=== PATIENT | female | born 1945 | race Caucasian/White ===

== ENCOUNTER → 2017-04-30 | Outpatient (CLI) | payer MEDICARE ==
[~2017-04-30] MED LIST: LISI-167 PO; VERA120C2 PO
== END | disposition home or self-care (01) ==
LOC: CFH 14:34
PROVIDERS: ATTEND Family Medicine
DX: Z12.31 Encounter for screening mammogram for malignant neoplasm of breast (principal)
CPT/HCPCS: 77063; 77067

== ENCOUNTER → 2017-11-26 | Outpatient (CLI) | payer MEDICARE | END | disposition home or self-care (01) | LOC: CFH 08:59 | PROVIDERS: ATTEND Internal Medicine Cardiovascular Disease | DX: I34.0 Nonrheumatic mitral (valve) insufficiency (principal); I10 Essential (primary) hypertension; E78.5 Hyperlipidemia, unspecified | CPT/HCPCS: 93306 ==

== ENCOUNTER → 2018-05-15 | Outpatient (CLI) | payer MEDICARE | END | disposition home or self-care (01) | LOC: CFH 14:46 | PROVIDERS: ATTEND Family Medicine | DX: Z12.31 Encounter for screening mammogram for malignant neoplasm of breast (principal); M85.88 Other specified disorders of bone density and structure, other site; M81.0 Age-related osteoporosis without current pathological fracture; Z78.0 Asymptomatic menopausal state | CPT/HCPCS: 77063; 77080; 77067 ==

== ENCOUNTER 2018-07-16 10:41 | Outpatient (CLI) | payer MEDICARE | END 2018-07-16 23:59 | disposition home or self-care (01) | LOC: CFH 10:41 | PROVIDERS: ATTEND Family Medicine | DX: R92.2 Inconclusive mammogram (principal); Z80.3 Family history of malignant neoplasm of breast | CPT/HCPCS: 76377; 76641; 76642 ==

== ENCOUNTER → 2019-05-20 | Outpatient (CLI) | payer MEDICARE | END | disposition home or self-care (01) | LOC: CFH 13:51 | PROVIDERS: ATTEND Family Medicine | DX: Z12.31 Encounter for screening mammogram for malignant neoplasm of breast (principal); N64.89 Other specified disorders of breast | CPT/HCPCS: 77063; 77067 ==

== ENCOUNTER 2020-02-14 21:55 | Emergency (ER) | payer MEDICARE ==
[~2020-02-14] VITALS: Ht 172.7 cm; Wt 60.0 kg
[2020-02-14] MEDS ORDERED: PROMETHAZINE 25 MG/ML, 1ML ONE (22:06)
--- NOTE | 2020-02-14 22:10 | NUR ---
REPORT RECEIVED FROM CAMPBELL SOSA WHO TOOK REPORT FROM [facility] AND COMPLETED INTAKE
--- NOTE | 2020-02-14 22:12 | NUR ---
PATIENT GIVEN 12.5MG PHENERGAN FOR NAUSEA PER VERBAL ORDERS FROM GAGAN NANCE.
[2020-02-14] MEDS ORDERED: PROMETHAZINE 25 MG/ML, 1ML IM ONE ×2 (22:30)
--- NOTE | 2020-02-14 22:40 | NUR ---
PATIENT IN IMAGING
[2020-02-14 22:48] LABS: BASOPHILS % (AUTO) 1 % (0-1); EOSINOPHILS % (AUTO) 1 % (1-7); LYMPHOCYTES % (AUTO) 18 % (22-44); MEAN CORPUSCULAR HEMOGLOBIN 30.4 pg (27.0-34.8); MEAN CORPUSCULAR HGB CONC 32.9 g/dL (32.4-35.8); MEAN PLATELET VOLUME 7.2 fL (7.4-10.4); MONOCYTES % (AUTO) 6 % (2-9); NEUTROPHILS % (AUTO) 74 % (42-75); PLATELET COUNT 258 x10^3/uL (130-400); RED BLOOD COUNT 4.64 x10^6/uL (3.82-5.3); RED CELL DISTRIBUTION WIDTH 13.9 % (9.6-15.2)
[2020-02-14 22:53] LABS: ANION GAP 6 mmol/L (5-15); CALCIUM 8.8 mg/dL (8.5-10.1); CHLORIDE 111 mmol/L (98-107)
[2020-02-14 22:55] LABS: MD NO
[2020-02-14 22:56] LABS: ALANINE AMINOTRANSFERASE 28 U/L (12-78); ALKALINE PHOSPHATASE 67 U/L (45-117); BILIRUBIN,TOTAL 0.3 mg/dL (0.2-1.0); CREATININE 0.81 mg/dL (0.55-1.02); TOTAL PROTEIN 7.4 g/dL (6.4-8.2)
--- NOTE | 2020-02-14 23:37 | NUR ---
PATIENT SLEEPING, MONITORING IN PLACE, VSS, NADN. CALL LIGHT IN REACH
--- NOTE | 2020-02-14 23:52 | NUR ---
POSTDOCTORAL SCIENTIST CALLING STAT RAD TO GET CT READ
--- NOTE | 2020-02-15 00:47 | NUR ---
PATIENT AMBULATORY TO RESTROOM WITH STANDBY ASSISTANCE
[2020-02-15] MEDS ORDERED: IBUPROFEN 600 MG TABLET ONE (01:36)
--- NOTE | 2020-02-15 01:38 | NUR ---
PATIENT MEDICATED PER EMAR FOR NECK PAIN
--- NOTE | 2020-02-15 01:40 | NUR ---
IS ON HIS WAY TO PICK PATIENT UP FOR SAFE DISCHARGE TRANSPORTATION
[2020-02-15 01:49] VITALS: BP 109/69
[2020-02-15] MEDS ORDERED: IBUPROFEN 600 MG TABLET PO ONE (02:00)
--- NOTE | 2020-02-15 02:29 | NUR ---
Patient and given discharge instructions and they have confirmed that they understand the instructions. Patient ambulatory with steady gait in room, wheeled to discharge and car outside for safety.
== END 2020-02-15 02:31 | disposition home or self-care (01) ==
LOC: ED 23:08
DX: S06.0X0A Concussion without loss of consciousness, initial encounter (principal); S01.511A Laceration without foreign body of lip, initial encounter; S00.531A Contusion of lip, initial encounter; M54.2 Cervicalgia; R94.31 Abnormal electrocardiogram [ECG] [EKG]; I10 Essential (primary) hypertension; F10.120 Alcohol abuse with intoxication, uncomplicated; W01.0XXA Fall on same level from slipping, tripping and stumbling without subsequent striking against object, initial encounter; Y93.89 Activity, other specified; Y92.009 Unspecified place in unspecified non-institutional (private) residence as the place of occurrence of the external cause; Y99.8 Other external cause status
CPT/HCPCS: 36415; 70450; 72125; 80053; 80307; 85025; 93005; 96372; 99285; J2550

== ENCOUNTER 2020-02-16 23:03 | Emergency (ER) | payer MEDICARE ==
[~2020-02-16] VITALS: Ht 170.2 cm; Wt 60.0 kg
--- NOTE | 2020-02-16 23:30 | NUR ---
PT REFUSED XRAY, LABS AND EKG. ANKUR FARAH, AWARE
[2020-02-16] MEDS ORDERED: ZIPRASIDONE 20 MG INJ IM ONE (23:52)
[2020-02-17] MEDS ORDERED: ZIPRASIDONE 20 MG INJ IM ONE
--- NOTE | 2020-02-17 00:09 | NUR ---
PT DEBBIE REMSA FROM HOME FOR PARANOIA, CALLED EMS. REPORTS PT HAS BEEN DRINKING AND DRIVING AND HAS BEEN HAVING ANXIETY. PT IS A&O X4. PT SEEN BY GAGAN PASCUAL AND DR SAEED. PT TRIED ELOPING. PT WOULD NOT REUTRN TO ROOM ON OWN. SECURITY CALLED. PT WAS KICKING THIS RN AND SECURITY. PT PLACED IN RESTRAINTS PER DR SAEED AND GIVEN GEODON. PT IS ON A LEGAL HOLD.
--- NOTE | 2020-02-17 00:12 | NUR ---
PT WAS KICKING SECURITY DURING RESTRAINT PLACEMENT. PT WAS GRABING THIS RN'S HANDS AND SQUEEZING THEM. PT KICKED THIS RN IN THE STOMACH. PT REFUSED TO COOPERATE. A SKIN TEAR WAS NOTED TO RIGHT ANKLE WHILE PLACING RESTRAINTS. RESTRAINTS NOT PLACED TO RIGHT ANKLE FOR WOUND INTEGRITY. DR SAEED AND GAGAN PASCUAL AWARE OF SKIN TEAR.
[2020-02-17 00:22] LABS: BASOPHILS % (AUTO) 1 % (0-1); EOSINOPHILS % (AUTO) 1 % (1-7); LYMPHOCYTES % (AUTO) 22 % (22-44); MEAN CORPUSCULAR HEMOGLOBIN 30.4 pg (27.0-34.8); MEAN CORPUSCULAR HGB CONC 33.1 g/dL (32.4-35.8); MEAN PLATELET VOLUME 7.3 fL (7.4-10.4); MONOCYTES % (AUTO) 10 % (2-9); NEUTROPHILS % (AUTO) 66 % (42-75); PLATELET COUNT 288 x10^3/uL (130-400); RED BLOOD COUNT 4.75 x10^6/uL (3.82-5.3); RED CELL DISTRIBUTION WIDTH 13.4 % (9.6-15.2)
--- NOTE | 2020-02-17 00:23 | NUR ---
SKIN TEAR TO R LEG/ANKLE WAS CLEANSED AND DRESSED WITH A TEGADERM.
[2020-02-17 00:26] LABS: MD NO
[2020-02-17 00:33] LABS: ALANINE AMINOTRANSFERASE 29 U/L (12-78); ALBUMIN 4.3 g/dL (3.4-5.0); ANION GAP 9 mmol/L (5-15); CALCIUM 9.6 mg/dL (8.5-10.1); CHLORIDE 105 mmol/L (98-107); CREATININE 0.87 mg/dL (0.55-1.02)
[2020-02-17 00:36] LABS: ALKALINE PHOSPHATASE 67 U/L (45-117); BILIRUBIN,TOTAL 0.6 mg/dL (0.2-1.0); TOTAL PROTEIN 7.6 g/dL (6.4-8.2)
--- NOTE | 2020-02-17 00:37 | NUR ---
CALLED, REPORTS HER PSYCH DOCTOR WANTS HER TO GO TO [facility] FOR INPATIENT. DR SAEED AWARE.
--- NOTE | 2020-02-17 00:39 | NUR ---
PT CALM, RESTRAINTS REMOVED. DR SAEED AWARE.
--- NOTE | 2020-02-17 00:49 | NUR ---
PT DENIES SI, HI. PT REPORTS SHE WAS GIVING AWAY HER BELONGINGS BECAUSE SHE DID NOT NEED THEM. PT APPEARS A&O X4, BUT THEN WILL RAMBLE ABOUT PARANOID THOUGHTS. PT REPORTS SHE IS TAKING HER PSYCH MEDICATION, BUT IS UNABLE TO STATE WHAT IT IS. RESTRAINTS HAVE BEEN REMOVED. PT IS COOPERATIVE AND NO LONGER COMBATIVE AT THIS TIME. DR SAEED AWARE.
--- NOTE | 2020-02-17 01:17 | NUR ---
PATIENT WANTED ME TO CALL . WAS CALLED AND UPDATED. PT REPORTS SHE HAS BEEN HAVING A LOT OF ANXIETY THAT HER IS GOING TO PASS AWAY, AND SINCE COVID SHE HAS BEEN EXPERIENCING MORE ANXIETY. PT IS RESTING IN ROOM. ONE BAG OF BELONGINGS LOCKED UP. PT'S APPLE WATCH IN BAG WITH WALLET AND CLOTHING. WILL CONTINUE TO MONITOR.
--- NOTE | 2020-02-17 01:42 | NUR ---
pt wallet taken to safe keeping by security guard dispatcher. pt resting comfortably in bed. appears in no acute distress.
--- NOTE | 2020-02-17 01:44 | NUR ---
PT REQUESTED WALLET BE LOCKED UP IN SECURITY. SECURITY CALLED. WALLET LOCKED UP.
[2020-02-17] MEDS ORDERED: VERAPAMIL (01:56)
[2020-02-17] MEDS ORDERED: LISINOPRIL (01:59)
[2020-02-17] MEDS ORDERED: BUSPAR (02:02)
--- NOTE | 2020-02-17 02:02 | NUR ---
PT REQUESTED [employer] BE LOCKED UP WITH SECURITY FOR SAFE KEEPING. SECURITY CALLED. REPORT GIVEN TO CAMPBELL HARVEY
--- NOTE | 2020-02-17 02:03 | NUR ---
REPORT RECIEVED FROM CAMPBELL MORGAN. TECH AT BEDSIDE FOR EKG, URINE COLLECTED, AND SECURITY COMING FOR BAG OF BELONGINGS
[2020-02-17 02:09] LABS: MICROSCOPIC AUTO
--- NOTE | 2020-02-17 02:29 | NUR ---
BELONGINGS REMOVED FROM PT ROOM AND ONE BAG PLACED IN LOCKER, APPLE WATCH SECURED WITH SECURITY
--- NOTE | 2020-02-17 02:53 | NUR ---
TECH MOVED PT FROM 25 TO 38.
[2020-02-17] MEDS ORDERED: THIAMINE 100 MG/ML, 2ML IM ONE (03:00)
[2020-02-17 03:15] LABS: SALICYLATE LEVEL < 1.7 mg/dL (2.8-20.0)
--- NOTE | 2020-02-17 03:37 | NUR ---
PT ASLEEPI IN BED, RESP EVEN, IN LINE OF SIGHT OF SITTER.
[2020-02-17 04:30] LABS: AMPHETAMINE SCREEN, URINE Negative (Negative); BARBITURATE SCREEN, URINE Negative (Negative); BENZODIAZEPINE SCREEN, URINE Negative (Negative); CANNABINOID SCREEN, URINE Negative (Negative); COCAINE SCREEN, URINE Negative (Negative); METHADONE SCREEN, URINE Negative (Negative); OPIATE SCREEN, URINE Negative (Negative)
--- NOTE | 2020-02-17 04:32 | NUR ---
PT REFUSED THIAMINE INJECTION, PT STATED "JUST GET OUT AND LEAVE ME ALONE. I DONT NEED ANYTHING FROM YOU". ERP UPDATED AND STATED TO JUST NON-ADMIN IT, AND WE WILL TRY AGAIN AT A LATER TIME
--- NOTE | 2020-02-17 05:11 | NUR ---
REPORT GIVEN TO CAMPBELL SPARKS. RN TO ASSUME CARE
--- NOTE | 2020-02-17 05:15 | NUR ---
REPORT RECEIVED FROM CANDICE HIGHTOWER. PT IS AGITATED AT THIS TIME AND MAKING DEMANDS. PT STATES "I WANT TO GO HOME, CALL MY AND TELL HIM TO PICK ME UP NOW". PT REQUESTED APPLE SAUCE AND WATER, WHEN DELIVERED TO ROOM PT STATED SHE DIDNT WANT IT ANYMORE, ONCE REMOVED FROM ROOM PT ASKING FOR IT AGAIN. ED PROCESS EXPLAINED TO PT. BOUNDARIES SET. PT AWARE THAT SHE IS ON L2K AND WILL BE EVALUATED BY PSYCH DIRECTOR OF LABOR AND DELIVERY TODAY. PT AWARE BREAKFAST WILL BE ORDERED AT 0700. PT RESTING ON HOSPITAL BED W/ SITTER OUTSIDE ROOM AND GARAGE DOORS DOWN FOR SAFETY. RESP EVEN AND UNLABORED, CARROLL.
--- NOTE | 2020-02-17 05:20 | NUR ---
PT SITTING UP ON SIDE OF BED, SUGGESTED TO PT TO LAY DOWN AND TRY AND GET SOME REST, OFFERED TO TURN DOWN LIGHTS, PT ARGUMENTATIVE STATING "NO IM JUST GOING TO SIT HERE I COULDN'T REST ALL NIGHT, LET ME GO HOME". PT EDUCATED AGAIN ON ED PROCESS. RESP EVEN AND UNLABORED, CARROLL.
--- NOTE | 2020-02-17 06:04 | NUR ---
PT REQUESTING SPOON, WARM BLANKET, STRAW AND TO SPEAK W/ SERVICE RIG OPERATOR. PT WAS PROVIDED W/ SAFETY SPOON WHEN GIVEN APPLE SAUCE. PT SAID SHE ASKED PSA TO THROW AWAY SPOON. PT NOW REQUESTING SAFETY SPOON BACK. PT PROVIDED W/ STRAW AND WARM BLANKET. PT UPDATED ON ED PROCESS AND INABILITY TO MEET ALL NEEDS REQUESTED DUE TO SAFETY. DAVIN SERVICE RIG OPERATOR AWARE OF PT REQUEST TO SPEAK W/ HER.
--- NOTE | 2020-02-17 06:20 | NUR ---
DAVIN CHANNEL MAN IN ROOM TO SPEAK W/ PT.
--- NOTE | 2020-02-17 06:30 | NUR ---
PT PROVIDED W/ PILLOW REQUESTED.
--- NOTE | 2020-02-17 06:35 | NUR ---
PT AMBULATED TO THE BR W/ A STEADY GAIT.
--- NOTE | 2020-02-17 06:42 | NUR ---
PT RETURNED TO ROOM W/O INCIDENT. BEFORE RETURNING TO BED, PT AMBULATED TO THE BR AGAIN.
--- NOTE | 2020-02-17 06:59 | NUR ---
PT REPORTS 4 EPISODES OF DIARRHEA IN PAST 15 MINUTES. PT INSTRUCTED NOT TO FLUSH NEXT BM TO ASSESS. ED PROVIDER UPDATED.
--- NOTE | 2020-02-17 07:06 | NUR ---
NO STOOL OBSERVED IN TOILET, PT NOW REPORTS SHE ONLY "PASSED A DROP". PT REQUESTING MEDS FOR GAS. PRIMARY RN UPDATED.
--- NOTE | 2020-02-17 07:07 | NUR ---
REPORT GIVEN TO COOPER HIGHTOWER. PT RESTING ON HOSPITAL BED W/ GARAGE DOORS DOWN AND SITTER OUTSIDE FOR SAFETY. RESP EVEN AND UNLABORED, CARROLL.
--- NOTE | 2020-02-17 07:14 | NUR ---
PT IN BATHROOM MULITPLE TIMES THIS AM. PT STATED SHE IS NEEDING TO POOP MULTIPLE TIMES, BUT THERE IS NO STOOL IN TOILET WHEN PT ASKED NOT TO FLUSH. PT STATED, "WELL IT'S MORE GAS THEN ANYTHING". SITTER AT DOOR. PT AT THIS CHARU REMAINS CALM AND DIRECTABLE. WILL CONTINUE TO MONITOR.
--- NOTE | 2020-02-17 08:45 | NUR ---
PT USED PHONE TO CALL . PT SPOKE WITH MARITZA AND RETURNED TO ROOM. PT COOPERATIVE WITH VITALS AND ASSESSMENT THIS AM. PT GIVEN BREAKFAST TRAY. PT STATED SHE IS NOT HUNGRY DUE TO FLATULANCE, BUT TO LEAVE TRAY SHE MAY BE HUNGRY LATER. SITTER AT DOOR
--- NOTE | 2020-02-17 09:14 | NUR ---
PT RESTING CALMLY IN BED AT THIS TIME. PT SWABBED FOR [facility] STATED THEY WILL TAKE PT. SITTER AT DOOR FOR OBS.
--- NOTE | 2020-02-17 11:15 | NUR ---
REPORT GIVEN TO ESCOBAR HIGHTOWER.
[2020-02-17 11:35] VITALS: BP 157/92
--- NOTE | 2020-02-17 11:36 | NUR ---
PT VITALS [facility] BEFORE GOING UP TO [facility]. PT BAG OF BELONGINGS TAKEN UP WITH PT. PT CALLED ASKING ABOUT THE DOG FOOD BRAND. PT ABLE TO PROVIDE THIS RN WITH THAT INFO TO TELL .
== END 2020-02-17 12:03 ==
LOC: ED 02-17 02:29
DX: F22 Delusional disorders (principal); F23 Brief psychotic disorder; R41.82 Altered mental status, unspecified; R94.31 Abnormal electrocardiogram [ECG] [EKG]; I10 Essential (primary) hypertension; F39 Unspecified mood [affective] disorder
CPT/HCPCS: 36415; 80053; 80307; 81001; 85025; 87426; 93005; 96372; 99285; J3486

== ENCOUNTER 2020-02-17 11:16 | Inpatient (IN) | payer MEDICARE ==
[~2020-02-17] VITALS: Ht 170.2 cm; Wt 58.4 kg
[~2020-02-17 11:16] MED LIST changes: +BUSPAR; +LISINOPRIL; +VERAPAMIL
[2020-02-17] MEDS ORDERED: POLYETHYLENE GLYCOL 17 GM PACKET PO PRN (11:30)
[2020-02-17] MEDS ORDERED: ACETAMINOPHEN 325 MG TABLET PO PRN (11:30)
[2020-02-17] MEDS ORDERED: BISACODYL 10 MG SUPP PR PRN (11:30)
[2020-02-17] MEDS ORDERED: ONDANSETRON ODT 4 MG PO PRN (11:30)
[2020-02-17 13:12] VITALS: BP 168/72
[2020-02-17] MEDS: LISINOPRIL 10 MG TABLET PO SCH ×2 (14:30→20:53)
[2020-02-17 20:27] VITALS: BP 156/99
[2020-02-17] MEDS: LAMOTRIGINE 100 MG TABLET PO SCH (20:53)
[2020-02-17] MEDS: OLANZAPINE 5 MG TABLET PO SCH (20:54)
[2020-02-18 06:47] LABS: CHOL/HDL RATIO 1.8; FREE T4 (FREE THYROXINE) 1.26 ng/dL (0.76-1.46)
[2020-02-18 07:00] LABS: LDL/HDL RATIO 0.7 (0.5-3.0)
[2020-02-18 07:27] VITALS: BP 120/77
[2020-02-18] MEDS: LAMOTRIGINE 100 MG TABLET PO SCH ×2 (08:16→20:04)
[2020-02-18 19:15] VITALS: BP 149/84
[2020-02-18] MEDS: OLANZAPINE 5 MG TABLET PO SCH (20:04)
[2020-02-19 06:25] VITALS: BP 116/74
[2020-02-19] MEDS: LAMOTRIGINE 100 MG TABLET PO SCH ×2 (08:52→21:04)
[2020-02-19] MEDS: LISINOPRIL 10 MG TABLET PO SCH (16:10)
[2020-02-19 20:10] VITALS: BP 149/90
[2020-02-19] MEDS: OLANZAPINE 5 MG TABLET PO SCH (21:04)
[2020-02-20 07:37] VITALS: BP 137/85
[2020-02-20] MEDS: LAMOTRIGINE 100 MG TABLET PO SCH ×2 (09:37→20:16)
[2020-02-20] MEDS: LISINOPRIL 10 MG TABLET PO SCH (09:37)
[2020-02-20 19:00] VITALS: BP 115/70
[2020-02-20] MEDS: OLANZAPINE 5 MG TABLET PO SCH (20:17)
[2020-02-21] MEDS: DIPHENHYDRAMINE 25 MG CAPSULE PO PRN ×2 (01:18→22:14)
[2020-02-21 07:29] VITALS: BP 125/77
[2020-02-21] MEDS: LAMOTRIGINE 100 MG TABLET PO SCH ×2 (09:17→20:59)
[2020-02-21] MEDS: LISINOPRIL 10 MG TABLET PO SCH (09:18)
[2020-02-21 20:00] VITALS: BP 123/60
[2020-02-21] MEDS: OLANZAPINE 5 MG TABLET PO SCH (20:59)
[2020-02-22 07:13] VITALS: BP 134/82
[2020-02-22] MEDS: LISINOPRIL 10 MG TABLET PO SCH (09:43)
[2020-02-22] MEDS: LAMOTRIGINE 100 MG TABLET PO SCH ×2 (09:43→20:02)
[2020-02-22 19:45] VITALS: BP 110/68
[2020-02-22] MEDS: OLANZAPINE 5 MG TABLET PO SCH (20:02)
[2020-02-23 07:00] VITALS: BP 119/74
[2020-02-23] MEDS: LISINOPRIL 10 MG TABLET PO SCH (09:38)
[2020-02-23] MEDS: LAMOTRIGINE 100 MG TABLET PO SCH ×2 (09:39→20:14)
[2020-02-23 20:12] VITALS: BP 138/78
[2020-02-23] MEDS: OLANZAPINE 5 MG TABLET PO SCH (20:14)
[2020-02-24 07:31] VITALS: BP 132/76
[2020-02-24] MEDS: LISINOPRIL 10 MG TABLET PO SCH (08:17)
[2020-02-24] MEDS: LAMOTRIGINE 100 MG TABLET PO SCH ×2 (08:17→20:35)
[2020-02-24 19:48] VITALS: BP 169/90
[2020-02-24] MEDS: OLANZAPINE 5 MG TABLET PO SCH (20:36)
[2020-02-25 07:26] VITALS: BP 120/71
[2020-02-25] MEDS: LISINOPRIL 10 MG TABLET PO SCH (08:38)
[2020-02-25] MEDS: LAMOTRIGINE 100 MG TABLET PO SCH ×2 (08:38→21:03)
[2020-02-25] MEDS ORDERED: LAMO100T8 PO (15:42)
[2020-02-25] MEDS ORDERED: LISI-167 PO (15:42)
[2020-02-25] MEDS ORDERED: OLAN5TAB9 PO (15:42)
[2020-02-25 20:03] VITALS: BP 125/72
[2020-02-25] MEDS: OLANZAPINE 5 MG TABLET PO SCH (21:03)
[2020-02-26] MEDS: LAMOTRIGINE 100 MG TABLET PO SCH (07:22)
[2020-02-26] MEDS: LISINOPRIL 10 MG TABLET PO SCH (07:22)
[2020-02-26 07:32] VITALS: BP 129/81
== END 2020-02-26 08:05 | disposition home or self-care (01) | DRG 885 ==
LOC: 3E 11:42
PROVIDERS: ADMIT Psychiatry & Neurology Psychosomatic Medicine; ATTEND Psychiatry & Neurology Psychosomatic Medicine
DX: F31.2 Bipolar disorder, current episode manic severe with psychotic features (principal); F23 Brief psychotic disorder; F10.20 Alcohol dependence, uncomplicated; I10 Essential (primary) hypertension; F41.9 Anxiety disorder, unspecified
CPT/HCPCS: 36415; 80061; 82140; 84439; 84443; 93005; 92523-GN; Q0163

== ENCOUNTER → 2020-04-27 | Outpatient (CLI) | payer MEDICARE ==
[~2020-04-27] MED LIST changes: +LAMO100T8 PO; +OLAN5TAB9 PO
== END | disposition home or self-care (01) ==
LOC: CFH 15:56
PROVIDERS: ATTEND Family Medicine
DX: R92.2 Inconclusive mammogram (principal)
CPT/HCPCS: 76641

== ENCOUNTER → 2020-06-07 | Outpatient (CLI) | payer MEDICARE | END | disposition home or self-care (01) | LOC: CFH 08:22 | PROVIDERS: ATTEND Physician Assistant | DX: Z12.31 Encounter for screening mammogram for malignant neoplasm of breast (principal); M75.101 Unspecified rotator cuff tear or rupture of right shoulder, not specified as traumatic; M25.411 Effusion, right shoulder; M19.011 Primary osteoarthritis, right shoulder | CPT/HCPCS: 77063; 77067 ==

== ENCOUNTER 2020-07-02 15:29 | Emergency (ER) | payer MEDICARE ==
[~2020-07-02] VITALS: Ht 172.7 cm; Wt 67.0 kg
--- NOTE | 2020-07-02 15:43 | NUR ---
THE PT IS A 74F BIB EMS AFTER PALPITATIONS AND CHEST TIGHTNESS. ON SCENE SHE WAS FOUND TO BE IN SVT IN THE 170'S. SHE CONVERTED WITH 6MG ADENOSINE. HR IS CURRENTLY 95, SHE IS 97% ON RA. BP 149/87. SHE IS CURRENTLY PAIN FREE. RADIO REPORTER, BP, AND SP02 MONITORS IN PLACE. CALL LIGHT WITHIN REACH.
[2020-07-02] MEDS ORDERED: ASPIRIN 81 MG TABLET CHEW ONE (16:28)
[2020-07-02] MEDS ORDERED: ASPIRIN 81 MG TABLET CHEW PO ONE (16:30)
[2020-07-02 16:41] LABS: BASOPHILS % (AUTO) 0 % (0-1); EOSINOPHILS % (AUTO) 0 % (1-7); LYMPHOCYTES % (AUTO) 28 % (22-44); MEAN CORPUSCULAR HEMOGLOBIN 30.1 pg (27.0-34.8); MEAN CORPUSCULAR HGB CONC 33.3 g/dL (32.4-35.8); MEAN PLATELET VOLUME 7.7 fL (7.4-10.4); MONOCYTES % (AUTO) 9 % (2-9); NEUTROPHILS % (AUTO) 63 % (42-75); PLATELET COUNT 234 x10^3/uL (130-400); RED BLOOD COUNT 4.53 x10^6/uL (3.82-5.3); RED CELL DISTRIBUTION WIDTH 13.5 % (9.6-15.2)
--- NOTE | 2020-07-02 16:43 | NUR ---
PT DID NOT WANT TO WAIT FOR D/C INSTRUCTIONS AND REFUSED TO STAY. HER WAS HERE TO PICK HER UP. DISCUSSED THE RISKS AND BENEFITS OF LEAVING AMA. PT WALKED OUT WITH A STEADY GAIT, IV D/C.
[2020-07-02 16:46] VITALS: BP 146/80
[2020-07-02 16:47] LABS: MD NO
[2020-07-02 16:54] LABS: ALBUMIN 3.8 g/dL (3.4-5.0); ANION GAP 5 mmol/L (5-15); CALCIUM 8.5 mg/dL (8.5-10.1); CHLORIDE 112 mmol/L (98-107)
[2020-07-02 17:09] LABS: ALANINE AMINOTRANSFERASE 23 U/L (12-78); ALKALINE PHOSPHATASE 59 U/L (45-117); BILIRUBIN,TOTAL 0.4 mg/dL (0.2-1.0); CREATININE 0.93 mg/dL (0.55-1.02); TOTAL PROTEIN 7.1 g/dL (6.4-8.2); TROPONIN I < 0.015 ng/mL (0.000-0.045)
== END 2020-07-02 17:03 | disposition left against medical advice (07) ==
LOC: ED 16:57
DX: I47.1 Supraventricular tachycardia (principal); R07.89 Other chest pain; R06.02 Shortness of breath; I10 Essential (primary) hypertension; R11.0 Nausea
CPT/HCPCS: 36415; 80053; 83735; 84443; 84484; 85025; 93005; 99284

== ENCOUNTER 2021-01-10 13:26 | Outpatient (CLI) | payer MEDICARE ==
[~2021-01-10 13:26] MED LIST changes: +OLAN5TAB69 PO; -OLAN5TAB9 PO
[2021-01-10 13:57] LABS: ALBUMIN 3.8 g/dL (3.4-5.0); BILIRUBIN, DIRECT 0.2 mg/dL (0.1-0.2)
[2021-01-10 13:59] LABS: BILIRUBIN,INDIRECT 0.3 mg/dL (0.0-2.0); BILIRUBIN,TOTAL 0.5 mg/dL (0.2-1.0); CHOL/HDL RATIO 1.9; LDL/HDL RATIO 0.8 (0.5-3.0); TOTAL PROTEIN 7.2 g/dL (6.4-8.2)
== END 2021-01-10 23:59 | disposition home or self-care (01) ==
LOC: LAB 13:26
PROVIDERS: ATTEND Internal Medicine Cardiovascular Disease
DX: E78.2 Mixed hyperlipidemia (principal); E78.5 Hyperlipidemia, unspecified; I10 Essential (primary) hypertension
CPT/HCPCS: 36415; 80061; 80076; 83036